=== PATIENT | male | born 1970 | race American Indian/Alaskan Native ===

== ENCOUNTER 2020-01-21 13:29 | Emergency (ER) | payer SELFPAY ==
[2020-01-21] MEDS ORDERED: LIDOCAINE VISCOUS 2% 15 ML ORAL LIQD PO ONE (13:38)
[2020-01-21] MEDS ORDERED: FAMOTIDINE 20 MG TAB PO ONE (13:38)
[2020-01-21] MEDS ORDERED: ALUM-MAG HYDROXIDE-SIMETHICONE 200-200-20MG/5ML ORAL LIQD 30 ML PO ONE (13:38)
--- NOTE | 2020-01-21 13:38 | Event Note ---
ED Screening Note ED Screening Note: used to smoke epigastric pain ate steak last pm woke up with same no hx ulcers/ does have some heart burn at times no etoh no n/v/d/c rx albuterol pmh asthma psh none This initial assessment/diagnostic orders/clinical plan/treatment(s) is/are subject to change based on patients health status, clinical progression and re- assessment by fellow clinical providers in the ED. Further treatment and workup at subsequent clinical providers discretion. Patient/guardian urged not to elope from the ED as their condition may be serious if not clinically assessed and managed. Initial orders include: labs gi cocktail xr
--- NOTE | 2020-01-21 14:22 | XRay Report ---
ABDOMINAL SERIES WITH CHEST X-RAY INDICATION / CLINICAL INFORMATION: epigastric pain. COMPARISON: None available. FINDINGS: TUBES / LINES: None. BOWEL GAS PATTERN: There is moderate to large fecal matter throughout the length of the colon. No fabien dence for obstruction or fluid levels. FREE AIR / EXTRALUMINAL GAS: None seen. Single view of the chest is within normal limits. IMPRESSION: Moderate constipation Signer Name: Alden Pritchard Jr, MD Signed: 01/21/2020 2:18 PM Workstation Name: [id number]
[2020-01-21 16:18] LABS: Hemoglobin 14.8 gm/dl (11.8-15.2); Mean Corpuscular HGB Conc 34 % (32-34); Mean Corpuscular Volume 100 fl (84-94); Platelet Count 165 K/mm3 (140-440); Red Blood Count 4.39 M/mm3 (3.65-5.03); Red Cell Distribution Width 12.1 % (13.2-15.2)
[2020-01-21 16:42] LABS: Alanine Aminotransferase 15 units/L (7-56); Albumin 4.4 g/dL (3.9-5); BUN/Creatinine Ratio 8; Blood Urea Nitrogen 10 mg/dL (9-20); Hemolysis Index 11
[2020-01-21 18:06] LABS: Bilirubin,Urine NEG (Negative); Blood,Urine NEG (Negative); Color,Urine Yellow (Yellow); Mucus,Urine FEW /HPF; Protein,Urine <15 mg/dL mg/dL (Negative)
[2020-01-21] MEDS ORDERED: ALUM-MAG HYDROXIDE-SIMETHICONE 200-200-20MG/5ML ORAL LIQD 30 ML ONE (19:33)
[2020-01-21] MEDS ORDERED: LIDOCAINE VISCOUS 2% 15 ML ORAL LIQD ONE (19:33)
[2020-01-21] MEDS ORDERED: FAMOTIDINE 20 MG TAB ONE (19:33)
[2020-01-21] MEDS ORDERED: FAMOTIDINE 20 MG/2 ML INJ IV ONE ×2 (19:56)
[2020-01-21] MEDS ORDERED: ONDANSETRON 4 MG/2 ML INJ IV ONE (19:56)
[2020-01-21] MEDS ORDERED: ONDANSETRON 4 MG/2 ML INJ ONE (19:56)
--- NOTE | 2020-01-21 20:19 | Emergency Department Report ---
ED Abdominal Pain HPI - General Chief Complaint: Abdominal Pain Stated Complaint: STOMACH PAIN Time Seen by Provider: 01/21/20 13:36 Source: patient Mode of arrival: Ambulatory Limitations: No Limitations - History of Present Illness Initial Comments: Patient is a 49-year-old male who presents emergency room complaints of epigastric abdominal pain that began last night. He describes the pain as a sharp stabbing pain and states occasionally feels like a burning sensation. He states he had similar symptoms a year ago but is not sure what he had at that time. He has associated nausea. He denies any vomiting, diarrhea, fever, blood or pus in the stool, melena. He states he had a normal bowel movement yesterday. He denies any dysuria, penile discharge, pain or swelling in the testicles, urinary frequency, urinary urgency. He has a past medical history of asthma. No allergies to medications. He states he has not been sexually active in 3 months. He denies any alcohol use. He is a smoker. Denies any drug use. Severity scale (0 -10): 9 - Related Data Home Medications Medication Instructions Recorded Confirmed Last Taken Albuterol Mdi (or & Nicu Only) 2 puff IH Q4HR 11/21/15 11/21/15 11/21/15 [Proair] Previous Rx's Medication Instructions Recorded Last Taken Type traMADoL [Ultram 50 MG tab] 50 mg PO Q6HR PRN #10 tablet 11/22/15 Unknown Rx Ciprofloxacin HCl [Ciprofloxacin 500 mg PO BID 7 Days #14 tab 01/21/20 Unknown Rx TAB] Famotidine [Pepcid] 40 mg PO QHS #30 tablet 01/21/20 Unknown Rx Polyethylene Glycol 3350 [Miralax] 7 gm PO DAILY PRN #1 powder 01/21/20 Unknown Rx Promethazine [Phenergan] 25 mg PO Q8HR PRN #10 tab 01/21/20 Unknown Rx Sucralfate [Carafate] 1 gm PO ACHS 7 Days #21 tablet 01/21/20 Unknown Rx Allergies Allergy/AdvReac Type Severity Reaction Status Date / Time No Known Allergies Allergy Verified 01/21/20 14:26 ED Review of Systems ROS: Stated complaint: STOMACH PAIN Other details as noted in HPI Comment: All other systems reviewed and negative ED Past Medical Hx - Past Medical History Previous Medical History?: Yes Hx Asthma: Yes - Surgical History Past Surgical History?: No - Social History Smoking Status: Never Smoker Substance Use Type: None - Medications Home Medications: Home Medications Medication Instructions Recorded Confirmed Last Taken Type Albuterol Mdi (or & Nicu Only) 2 puff IH Q4HR 11/21/15 11/21/15 11/21/15 History [Proair] traMADoL [Ultram 50 MG tab] 50 mg PO Q6HR PRN #10 tablet 11/22/15 Unknown Rx Ciprofloxacin HCl [Ciprofloxacin 500 mg PO BID 7 Days #14 tab 01/21/20 Unknown Rx TAB] Famotidine [Pepcid] 40 mg PO QHS #30 tablet 01/21/20 Unknown Rx Polyethylene Glycol 3350 [Miralax] 7 gm PO DAILY PRN #1 powder 01/21/20 Unknown Rx Promethazine [Phenergan] 25 mg PO Q8HR PRN #10 tab 01/21/20 Unknown Rx Sucralfate [Carafate] 1 gm PO ACHS 7 Days #21 tablet 01/21/20 Unknown Rx ED Physical Exam - General Limitations: No Limitations General appearance: alert, in no apparent distress - Head Head exam: Present: atraumatic, normocephalic - Eye Eye exam: Present: normal appearance - ENT ENT exam: Present: mucous membranes moist - Respiratory Respiratory exam: Present: normal lung sounds bilaterally. Absent: respiratory distress, wheezes, rales, rhonchi, stridor, chest wall tenderness, accessory muscle use, decreased breath sounds, prolonged expiratory - Cardiovascular Cardiovascular Exam: Present: regular rate, normal rhythm, normal heart sounds. Absent: systolic murmur, diastolic murmur, rubs, gallop - GI/Abdominal GI/Abdominal exam: Present: soft, tenderness (epigastric), normal bowel sounds. Absent: distended, guarding, rebound, rigid - Neurological Exam Neurological exam: Present: alert, oriented X3 - Psychiatric Psychiatric exam: Present: normal affect, normal mood - Skin Skin exam: Present: warm, dry, intact ED Course Vital Signs 01/21/20 01/21/20 01/21/20 14:26 22:55 22:56 Temperature 98.2 F 98.4 F 98.4 F Pulse Rate 80 70 70 Respiratory 16 16 16 Rate Blood Pressure 151/98 116/82 116/82 [Right] O2 Sat by Pulse 98 96 Oximetry ED Medical Decision Making - Lab Data Result diagrams: 01/21/20 15:59 01/21/20 15:59 Lab Results 01/21/20 01/21/20 01/21/20 Range/Units 15:59 15:59 19:41 WBC 6.4 (4.5-11.0) K/mm3 RBC 4.39 (3.65-5.03) M/mm3 Hgb 14.8 (11.8-15.2) gm/dl Hct 44.0 (35.5-45.6) % MCV 100 H (84-94) fl MCH 34 H (28-32) pg MCHC 34 (32-34) % RDW 12.1 L (13.2-15.2) % Plt Count 165 (140-440) K/mm3 Sodium 143 (137-145) mmol/L Potassium 4.5 (3.6-5.0) mmol/L Chloride 105.2 (98-107) mmol/L Carbon Dioxide 26 (22-30) mmol/L Anion Gap 16 mmol/L BUN 10 (9-20) mg/dL Creatinine 1.2 (0.8-1.3) mg/dL Estimated GFR > 60 ml/min BUN/Creatinine Ratio 8 % Glucose 118 H (75-100) mg/dL Calcium 10.0 (8.4-10.2) mg/dL Total Bilirubin 1.40 H (0.1-1.2) mg/dL AST 26 (5-40) units/L ALT 15 (7-56) units/L Alkaline Phosphatase 69 (35-129) units/L Troponin T < 0.010 (0.00-0.029) ng/mL Total Protein 7.1 (6.3-8.2) g/dL Albumin 4.4 (3.9-5) g/dL Albumin/Globulin Ratio 1.6 % Lipase 16 (13-60) units/L Urine Color (Yellow) Urine Turbidity (Clear) Urine pH (5.0-7.0) Ur Specific Thorp (1.003-1.030) Urine Protein (Negative) mg/dL Urine Glucose (UA) (Negative) mg/dL Urine Ketones (Negative) mg/dL Urine Blood (Negative) Urine Nitrite (Negative) Urine Bilirubin (Negative) Urine Urobilinogen (<2.0) mg/dL Ur Leukocyte Esterase (Negative) Urine WBC (Auto) (0.0-6.0) /HPF Urine RBC (Auto) (0.0-6.0) /HPF U Epithel Cells (Auto) (0-13.0) /HPF Urine Mucus /HPF 01/21/20 Range/Units Unknown WBC (4.5-11.0) K/mm3 RBC (3.65-5.03) M/mm3 Hgb (11.8-15.2) gm/dl Hct (35.5-45.6) % MCV (84-94) fl MCH (28-32) pg MCHC (32-34) % RDW (13.2-15.2) % Plt Count (140-440) K/mm3 Sodium (137-145) mmol/L Potassium (3.6-5.0) mmol/L Chloride (98-107) mmol/L Carbon Dioxide (22-30) mmol/L Anion Gap mmol/L BUN (9-20) mg/dL Creatinine (0.8-1.3) mg/dL Estimated GFR ml/min BUN/Creatinine Ratio % Glucose (75-100) mg/dL Calcium (8.4-10.2) mg/dL Total Bilirubin (0.1-1.2) mg/dL AST (5-40) units/L ALT (7-56) units/L Alkaline Phosphatase (35-129) units/L Troponin T (0.00-0.029) ng/mL Total Protein (6.3-8.2) g/dL Albumin (3.9-5) g/dL Albumin/Globulin Ratio % Lipase (13-60) units/L Urine Color Yellow (Yellow) Urine Turbidity Clear (Clear) Urine pH 6.0 (5.0-7.0) Ur Specific Thorp 1.018 (1.003-1.030) Urine Protein <15 mg/dl (Negative) mg/dL Urine Glucose (UA) Neg (Negative) mg/dL Urine Ketones Tr (Negative) mg/dL Urine Blood Neg (Negative) Urine Nitrite Neg (Negative) Urine Bilirubin Neg (Negative) Urine Urobilinogen 4.0 (<2.0) mg/dL Ur Leukocyte Esterase Tr (Negative) Urine WBC (Auto) 9.0 H (0.0-6.0) /HPF Urine RBC (Auto) 2.0 (0.0-6.0) /HPF U Epithel Cells (Auto) 1.0 (0-13.0) /HPF Urine Mucus Few /HPF Vital Signs 01/21/20 01/21/20 01/21/20 14:26 22:55 22:56 Temperature 98.2 F 98.4 F 98.4 F Pulse Rate 80 70 70 Respiratory 16 16 16 Rate Blood Pressure 151/98 116/82 116/82 [Right] O2 Sat by Pulse 98 96 Oximetry - EKG Data EKG shows normal: sinus rhythm, intervals, QRS complexes - EKG Data 01/21/20 21:45 LAD normal early repolarization no STEMI - Radiology Data Radiology results: report reviewed cc: MADDY ALVES Fluoro Time In Minutes: ABDOMINAL SERIES WITH CHEST X-RAY INDICATION / CLINICAL INFORMATION: epigastric pain. COMPARISON: None available. FINDINGS: TUBES / LINES: None. BOWEL GAS PATTERN: There is moderate to large fecal matter throughout the length of the colon. No evidence for obstruction or fluid levels. FREE AIR / EXTRALUMINAL GAS: None seen. Single view of the chest is within normal limits. IMPRESSION: Moderate constipation Signer Name: Alden Pritchard Jr, MD Signed: 01/21/2020 2:18 PM Workstation Name: [id number] Transcribed By: TTR Dictated By: ALDEN PRITCHARD JR, MD Electronically Authenticated By: ALDEN PRITCHARD JR, MD Signed Date/Time: 01/21/201417 DD/ 16 TD/TT: cc: ROSMERY STONE CT ABDOMEN AND PELVIS WITH CONTRAST INDICATION / CLINICAL INFORMATION: epigastric abd pain. TECHNIQUE: Axial CT images were obtained through the abdomen and pelvis after IV contrast. All CT scans at this location are performed using CT dose reduction for ALARA by means of automated exposure control. COMPARISON: None available. FINDINGS: LOWER CHEST: No significant abnormality. LIVER: No significant abnormality. GALLBLADDER: No significant abnormality. BILE DUCTS: No significant abnormality. PANCREAS: No significant abnormality. SPLEEN: No significant abnormality. ADRENALS: No significant abnormality. RIGHT KIDNEY / URETER: The right kidney is enlarged with innumerable cystic lesions, the largest measuring 5.5 cm in cross sectional diameter. None of these lesions appear to have a soft tissue component. The posterior lateral lesion at the interpolar region of the right kidney demonstrates a thin septation (series 2 image 55). LEFT KIDNEY / URETER: The left kidney is enlarged with a numerable cystic lesions, the largest measuring 7.1 x 5.3 cm in demonstrating multiple thin internal septations. No evidence of soft tissue component any of these lesions. STOMACH / SMALL BOWEL: No significant abnormality. COLON: No significant abnormality. APPENDIX: No significant abnormality. PERITONEUM: No free fluid. No free air. No fluid collection. LYMPH NODES: No significant adenopathy. AORTA / ARTERIES: No significant abnormality. IVC / VEINS: No significant abnormality. URINARY BLADDER: No significant abnormality. REPRODUCTIVE ORGANS: No significant abnormality. ADDITIONAL FINDINGS: None. SKELETAL SYSTEM: Mild sclerosis noted of the bilateral femoral heads. There is an ill-defined solitary sclerotic lesion noted of the inferior pubic ramus on the right measuring 6 mm. IMPRESSION: 1. No significant acute abnormality. 2. Bilateral cystic renal disease. Most are simple cysts, however A few of the lesions demonstrate thin internal septations and would be classified as Bosniak 2. Please see above for full details. Signer Name: Tio Miguel MD Signed: 01/21/2020 8:45 PM Workstation Name: [id number] Transcribed By: Dictated By: TIO MIGUEL Electronically Authenticated By: TIO MIGUEL Signed Date/Time: 01/21/202044 DD/ 33 TD/TT: - Medical Decision Making Patient is a 49-year-old male who presents emergency room complaints of epigastric abdominal pain that began last night. He describes the pain as a sharp stabbing pain and states occasionally feels like a burning sensation. He states he had similar symptoms a year ago but is not sure what he had at that time. He has associated nausea. He denies any vomiting, diarrhea, fever, blood or pus in the stool, melena. He states he had a normal bowel movement yesterday. He denies any dysuria, penile discharge, pain or swelling in the testicles, urinary frequency, urinary urgency. He has a past medical history of asthma. No allergies to medications. He states he has not been sexually active in 3 months. He denies any alcohol use. He is a smoker. Denies any drug use. Vitals are stable. On exam patient has epigastric abdominal tenderness palpation, no guarding, no rebound, no rigidity, no peritoneal signs, normal bowel sounds. Labs are stable. Troponin is negative. UA shows 9 white blood cells and trace leukocyte esterase, patient prophylactically treated for G/C and will also be treated for UTI. EKG with normal sinus rhythm, left axis deviation, normal early repolarization pattern, no STEMI. abdominal XR with chest: Moderate constipation. CT abd pelvis with IV contrast: 1. No significant acute abnormality. 2. Bilateral cystic renal disease. Most are simple cysts, however A few of the lesions demonstrate thin internal septations and would be classified as Bosniak 2. Please see above for full details. Patient given medications and symptoms completely improved and he was feeling much better and ready to go home. Discussed all results with patient and patient given his CT report. Patient given prescription for Carafate, Pepcid, Cipro, Phenergan, MiraLAX. Advised patient Please take medication as prescribed. Increase your water intake. Please follow-up with a primary care doctor. Please follow-up with a GI doctor regarding your abdominal pain. Please follow-up with the petal shaper hand regarding the renal cysts on your CT. please take your CT report with you. Please follow-up with the health department or clinic for a full STD panel. Please have any partner tested and treated as well. Return to emergency room for any new or worsening symptoms. - Differential Diagnosis PUD, GERD, gas pain, ACS, obstruction, mass, pancreatitis, gastritis Critical care attestation.: If time is entered above; I have spent that time in minutes in the direct care of this critically ill patient, excluding procedure time. ED Disposition Clinical Impression: Epigastric abdominal pain, Nausea, Bilateral renal cysts UTI (urinary tract infection) Qualifiers: Urinary tract infection type: site unspecified Hematuria presence: without hematuria Qualified Code(s): N39.0 - Urinary tract infection, site not specified Constipation Qualifiers: Constipation type: unspecified constipation type Qualified Code(s): K59.00 - Co nstipation, unspecified Disposition: - TO HOME OR SELFCARE Is pt being admited?: No Does the pt Need Aspirin: No Condition: Stable Instructions: Peptic Ulcer (ED), Constipation (ED), Urinary Tract Infection in Men (ED), High Fiber Diet (ED), Diet for Ulcers and Gastritis (ED), Gastroesophageal Reflux Disease (ED) Additional Instructions: Please take medication as prescribed. Increase your water intake. Please follow-up with a primary care doctor. Please follow-up with a GI doctor regarding your abdominal pain. Please follow-up with the petal shaper hand regarding the renal cysts on your CT. please take your CT report with you. Please follow- up with the health department or clinic for a full STD panel. Please have any partner tested and treated as well. Return to emergency room for any new or worsening symptoms. Prescriptions: Famotidine [Pepcid] 40 mg PO QHS #30 tablet Sucralfate [Carafate] 1 gm PO ACHS 7 Days #21 tablet Ciprofloxacin HCl [Ciprofloxacin TAB] 500 mg PO BID 7 Days #14 tab Polyethylene Glycol 3350 [Miralax] 7 gm PO DAILY PRN #1 powder PRN Reason: Constipation Promethazine [Phenergan] 25 mg PO Q8HR PRN #10 tab PRN Reason: Nausea And Vomiting Referrals: PRIMARY MD JIMENA [Primary Care Provider] - 2-3 Days [facility] [Provider Group] - 2-3 Days BEATRICE CUNNINGHAM MD [Staff Physician] - 2-3 Days [facility] [Outside] - 2-3 Days Forms: Work/School Release Form(ED) Time of Disposition: 21:33 Print Language: IRISH
--- NOTE | 2020-01-21 20:50 | Cat Scan Report ---
CT ABDOMEN AND PELVIS WITH CONTRAST INDICATION / CLINICAL INFORMATION: epigastric abd pain. TECHNIQUE: Axial CT images were obtained through the abdomen and pelvis after IV contrast. All CT scans at this location are performed using CT dose reduction for ALARA by means of automated exposure control. COMPARISON: None available. FINDINGS: LOWER CHEST: No significant abnormality. LIVER: No significant abnormality. GALLBLADDER: No significant abnormality. BILE DUCTS: No significant abnormality. PANCREAS: No significant abnormality. SPLEEN: No significant abnormality. ADRENALS: No significant abnormality. RIGHT KIDNEY / URETER: The right kidney is enlarged with innumerable cystic lesions, the largest jhoan uring 5.5 cm in cross sectional diameter. None of these lesions appear to have a soft tissue componen t. The posterior lateral lesion at the interpolar region of the right kidney demonstrates a thin sept ation (series 2 image 55). LEFT KIDNEY / URETER: The left kidney is enlarged with a numerable cystic lesions, the largest measur ing 7.1 x 5.3 cm in demonstrating multiple thin internal septations. No evidence of soft tissue compo nent any of these lesions. STOMACH / SMALL BOWEL: No significant abnormality. COLON: No significant abnormality. APPENDIX: No significant abnormality. PERITONEUM: No free fluid. No free air. No fluid collection. LYMPH NODES: No significant adenopathy. AORTA / ARTERIES: No significant abnormality. IVC / VEINS: No significant abnormality. URINARY BLADDER: No significant abnormality. REPRODUCTIVE ORGANS: No significant abnormality. ADDITIONAL FINDINGS: None. SKELETAL SYSTEM: Mild sclerosis noted of the bilateral femoral heads. There is an ill-defined solitar y sclerotic lesion noted of the inferior pubic ramus on the right measuring 6 mm. IMPRESSION: 1. No significant acute abnormality. 2. Bilateral cystic renal disease. Most are simple cysts, however A few of the lesions demonstrate th in internal septations and would be classified as Bosniak 2. Please see above for full details. Signer Name: Tio Gore MD Signed: 01/21/2020 8:45 PM Workstation Name: [id number]
[2020-01-21] MEDS ORDERED: AZITHROMYCIN 250 MG TAB PO ONE (21:20)
[2020-01-21 22:56] VITALS: BP 116/82
== END 2020-01-21 22:57 | disposition home or self-care (01) ==
LOC: ED 13:29
DX: N28.1 Cyst of kidney, acquired (principal); K59.00 Constipation, unspecified; N39.0 Urinary tract infection, site not specified; J45.909 Unspecified asthma, uncomplicated; Z79.899 Other long term (current) drug therapy
CPT/HCPCS: 36415; 74022; 74177; 80053; 81001; 83690; 84484; 85027; 87086; 93005; 96365; 96375; 99285; J0696; J2405; Q9967

== ENCOUNTER 2020-08-05 11:29 | Emergency (ER) | payer SELFPAY ==
--- NOTE | 2020-08-05 11:39 | Event Note ---
ED Screening Note ED Screening Note: 50-year-old -[place] Citizen male presents emerged department complaining of a reemergence of abdominal pain to the epigastric region over the last 2 weeks has been progressively worsening and reports not been able to tolerate meals over the last few days but has had no bowel movement over the last 4 days. Ports normal symptoms no hematochezia reports having this same same episode March 2020 which was treated with Cipro and sucralfate This initial assessment/diagnostic orders/clinical plan/treatment(s) is/are subject to change based on patients health status, clinical progression and re- assessment by fellow clinical providers in the ED. Further treatment and workup at subsequent clinical providers discretion. Patient/guardian urged not to elope from the ED as their condition may be serious if not clinically assessed and managed. Initial orders include: Plan obtain labs, urine and evaluate constipation with an acute abdominal series
[2020-08-05 11:58] LABS: Basophils % (Auto) 0.6 % (0.0-1.8); Eosinophils # (Auto) 0.2 K/mm3 (0.0-0.4); Hematocrit 43.3 % (35.5-45.6); Lymphocytes # (Auto) 2.1 K/mm3 (1.2-5.4); Mean Corpuscular HGB Conc 35 % (32-34); Mean Corpuscular Volume 98 fl (84-94); Monocytes # (Auto) 0.4 K/mm3 (0.0-0.8); Monocytes % (Auto) 7.1 % (0.0-7.3); Platelet Count 150 K/mm3 (140-440)
[2020-08-05 12:18] LABS: Alanine Aminotransferase 8 units/L (7-56); Albumin 4.1 g/dL (3.9-5); BUN/Creatinine Ratio 10; Blood Urea Nitrogen 12 mg/dL (9-20); Calcium 9.3 mg/dL (8.4-10.2); Hemolysis Index 6
--- NOTE | 2020-08-05 13:02 | XRay Report ---
ACUTE ABDOMEN SERIES INDICATION / CLINICAL INFORMATION: constipation abd pain. COMPARISON: 01/21/2020 FINDINGS: Normal bowel gas pattern. No evidence of obstruction or pneumoperitoneum. A small amount of fecal mat erial is seen in the colon. The accompanying chest x-ray shows no acute disease. Signer Name: Chon Cole MD FACR Signed: 08/05/2020 12:58 PM Workstation Name: [id number]
[2020-08-05 13:44] LABS: Bilirubin,Direct 0.3 mg/dL (0-0.2)
[2020-08-05 17:14] LABS: Bilirubin,Urine NEG (Negative); Blood,Urine NEG (Negative); Color,Urine Amber (Yellow); RBC,Urine < 1.0 /HPF (0.0-6.0)
[2020-08-05] MEDS ORDERED: FAMOTIDINE 20 MG/2 ML INJ IV ONE (17:27)
[2020-08-05] MEDS ORDERED: fentaNYL 100 MCG/2 ML INJ IV ONE (17:27)
[2020-08-05] MEDS ORDERED: ALUM-MAG HYDROXIDE-SIMETHICONE 200-200-20MG/5ML ORAL LIQD 30 ML PO ONE (17:27)
[2020-08-05] MEDS ORDERED: LIDOCAINE VISCOUS 2% 15 ML ORAL LIQD PO ONE (17:27)
[2020-08-05] MEDS ORDERED: ONDANSETRON 4 MG/2 ML INJ IV ONE (17:27)
--- NOTE | 2020-08-05 17:31 | Emergency Department Report ---
HPI - General Chief Complaint: Abdominal Pain Time Seen by Provider: 08/05/20 16:42 - HPI HPI: Room 42 The patient is a 50-year-old male present with a chief complaint of abdominal pain. The patient states for 1 week he has had intermittent burning epigastric pain. Patient denies nausea vomiting but states he has had early satiety. Patient states he has not had a bowel movement in 4 days when he normally has 1 every other day. Patient denies history of fever. Patient currently gives his pain a score of 9/10. The patient states he had a similar episode of this pain 4 months ago and he was prescribed ciprofloxacin and sulcal fate which helped. Patient states he is uncertain if he received an EGD and he is uncertain of what his final diagnosis was. ED Past Medical Hx - Past Medical History Hx Asthma: Yes - Surgical History Past Surgical History?: No - Family History Family history: no significant - Social History Smoking Status: Current Some Day Smoker Substance Use Type: None (Denies illicit drug use), Alcohol - Medications Home Medications: Home Medications Medication Instructions Recorded Confirmed Last Taken Type Albuterol Mdi (or & Nicu Only) 2 puff IH Q4HR 11/21/15 11/21/15 11/21/15 History [Proair] traMADoL [Ultram 50 MG tab] 50 mg PO Q6HR PRN #10 tablet 11/22/15 Unknown Rx Ciprofloxacin HCl [Ciprofloxacin 500 mg PO BID 7 Days #14 tab 01/21/20 Unknown Rx TAB] Famotidine [Pepcid] 40 mg PO QHS #30 tablet 01/21/20 Unknown Rx Polyethylene Glycol 3350 [Miralax] 7 gm PO DAILY PRN #1 powder 01/21/20 Unknown Rx Promethazine [Phenergan] 25 mg PO Q8HR PRN #10 tab 01/21/20 Unknown Rx Sucralfate [Carafate] 1 gm PO ACHS 7 Days #21 tablet 01/21/20 Unknown Rx Docusate Sodium [Colace] 100 mg PO BID PRN #30 capsule 08/05/20 Unknown Rx Famotidine [Pepcid] 20 mg PO BID #30 tablet 08/05/20 Unknown Rx HYDROcodone/APAP 5-325 [[place] 1 - 2 each PO Q6HR PRN #10 tablet 08/05/20 Unknown Rx 5/325] Lactulose [Cephulac] 20 gm PO QDAY #90 ml 08/05/20 Unknown Rx ED Review of Systems ROS: Stated complaint: STOMACH/HIP PAIN Other details as noted in HPI Constitutional: denies: fever Eyes: denies: eye pain ENT: denies: throat pain Respiratory: no symptoms reported Cardiovascular: denies: chest pain Endocrine: no symptoms reported Gastrointestinal: abdominal pain, constipation. denies: nausea, vomiting Genitourinary: denies: dysuria Musculoskeletal: denies: back pain Neurological: denies: headache Physical Exam - Physical Exam Vital Signs: Vital Signs 08/05/20 11:34 Temperature 97.9 F Pulse Rate 79 Respiratory 20 Rate Blood Pressure 142/94 O2 Sat by Pulse 94 Oximetry Physical Exam: GENERAL: The patient is well-developed well-nourished male lying on stretcher not appearing to be in acute distress. [] HEENT: Normocephalic. Atraumatic. Extraocular motions are intact. Patient has moist mucous membranes. NECK: Supple. Trachea midline CHEST/LUNGS: Clear to auscultation. There is no respiratory distress noted. HEART/CARDIOVASCULAR: Regular. There is no tachycardia. There is no gallop rub or murmur. ABDOMEN: Abdomen is soft, with diffuse tenderness to palpation but greatest in the epigastric region. No rebound or guarding. Patient has normal bowel sounds. There is no abdominal distention. SKIN: There is no rash. There is no edema. There is no diaphoresis. NEURO: The patient is awake, alert, and oriented. The patient is cooperative. The patient has no focal neurologic deficits. The patient has normal speech MUSCULOSKELETAL: There is no evidence of acute injury. ED Course Vital Signs 08/05/20 11:34 Temperature 97.9 F Pulse Rate 79 Respiratory 20 Rate Blood Pressure 142/94 O2 Sat by Pulse 94 Oximetry ED Medical Decision Making - Lab Data Result diagrams: 08/05/20 11:49 08/05/20 11:49 Laboratory Tests 08/05/20 08/05/20 08/05/20 11:45 11:49 11:49 WBC 5.5 RBC 4.40 Hgb 15.0 Hct 43.3 MCV 98 H MCH 34 H MCHC 35 H RDW 12.0 L Plt Count 150 Lymph % (Auto) 38.0 H [place] % (Auto) 7.1 Eos % (Auto) 4.0 Baso % (Auto) 0.6 Lymph # (Auto) 2.1 [place] # (Auto) 0.4 Eos # (Auto) 0.2 Baso # (Auto) 0.0 Seg Neutrophils % 50.3 Seg Neutrophils # 2.8 Sodium 137 Potassium 4.0 Chloride 102.8 Carbon Dioxide 28 Anion Gap 10 BUN 12 Creatinine 1.2 Estimated GFR > 60 BUN/Creatinine Ratio 10 Glucose 92 Calcium 9.3 Total Bilirubin 1.40 H Direct Bilirubin 0.3 H Indirect Bilirubin 1.1 AST 16 ALT 8 Alkaline Phosphatase 71 Troponin T < 0.010 Total Protein 7.3 Albumin 4.1 Albumin/Globulin Ratio 1.3 Lipase 19 Urine Color Urine Turbidity Urine pH Ur Specific [place] Urine Protein Urine Glucose (UA) Urine Ketones Urine Blood Urine Nitrite Urine Bilirubin Urine Urobilinogen Ur Leukocyte Esterase Urine WBC (Auto) Urine RBC (Auto) U Epithel Cells (Auto) 08/05/20 15:25 WBC RBC Hgb Hct MCV MCH MCHC RDW Plt Count Lymph % (Auto) [place] % (Auto) Eos % (Auto) Baso % (Auto) Lymph # (Auto) [place] # (Auto) Eos # (Auto) Baso # (Auto) Seg Neutrophils % Seg Neutrophils # Sodium Potassium Chloride Carbon Dioxide Anion Gap BUN Creatinine Estimated GFR BUN/Creatinine Ratio Glucose Calcium Total Bilirubin Direct Bilirubin Indirect Bilirubin AST ALT Alkaline Phosphatase Troponin T Total Protein Albumin Albumin/Globulin Ratio Lipase Urine Color Jamia Urine Turbidity Clear Urine pH 5.0 Ur Specific [place] 1.034 H Urine Protein 100 mg/dl Urine Glucose (UA) Neg Urine Ketones Neg Urine Blood Neg Urine Nitrite Neg Urine Bilirubin Neg Urine Urobilinogen 4.0 Ur Leukocyte Esterase Tr Urine WBC (Auto) < 1.0 Urine RBC (Auto) < 1.0 U Epithel Cells (Auto) < 1.0 - EKG Data -: EKG Interpreted by Wi EKG shows normal: sinus rhythm Rate: normal - EKG Data When compared to previous EKG there are: previous EKG unavailable Interpretation: other (No ischemic changes seen) - Radiology Data Radiology results: report reviewed (CT abdomen pelvis), image reviewed (CT abdomen pelvis) [facility] [address] [place] [address] Cat Scan Report Signed Patient: ALEK DARDEN MR#: [id number] 1 : 1970 Acct:[id number] Age/Sex: 50 / M ADM Date: 08/05/20 Loc: ED Attending Dr: Ordering Physician: OLIVIA ERICKSON MD Date of Service: 08/05/20 Procedure(s): CT abdomen pelvis w con Accession Number(s): [id number] cc: OLIVIA ERICKSON MD CT ABDOMEN AND PELVIS WITH CONTRAST INDICATION / CLINICAL INFORMATION: Epigastric pain, constipation. TECHNIQUE: Axial CT images were obtained through the abdomen and pelvis after 100 cc Omnipaque [address] scans at this location are performed using CT dose reduction for ALARA by means of automated exposure control. COMPARISON: Acute abdominal series performed earlier today. CT abdomen and pelvis with contrast from 01/21/2020. FINDINGS: LOWER CHEST: No significant abnormality. LIVER: No significant abnormality. GALLBLADDER: No significant abnormality. BILE DUCTS: No significant abnormality. PANCREAS: No significant abnormality. SPLEEN: No significant abnormality. ADRENALS: No significant abnormality. RIGHT KIDNEY / URETER: No acute abnormality. Unchanged polycystic kidney. LEFT KIDNEY / URETER: No acute abnormality. Unchanged polycystic kidney. STOMACH / SMALL BOWEL: No significant abnormality. COLON: Moderate amount of stool throughout the colon without other significant abnormalities. APPENDIX: No significant abnormality. PERITONEUM: No free fluid. No free air. No fluid collection. LYMPH NODES: No significant adenopathy. AORTA / ARTERIES: No significant abnormality. IVC / VEINS: No significant abnormality. URINARY BLADDER: No significant abnormality. REPRODUCTIVE ORGANS: No significant abnormality. ADDITIONAL FINDINGS: None. SKELETAL SYSTEM: No significant abnormality. IMPRESSION: 1. No acute abnormality. 2. Moderate colonic stool burden is consistent with the provided history of constipation. 3. No other significant interval changes. Signer Name: Jamari Go MD Signed: 08/05/2020 6:07 PM Workstation Name: [id number] Transcribed By: KIM Dictated By: Jamari Go MD Electronically Authenticated By: Jamari Go MD Signed Date/Time: 08/05/201806 DD/ 03 TD/TT: - Differential Diagnosis Peptic ulcer disease, gastritis, partial small bowel obstruction, ACS Critical care attestation.: If time is entered above; I have spent that time in minutes in the direct care of this critically ill patient, excluding procedure time. ED Disposition Clinical Impression: Acute abdominal pain Disposition: DC-01 TO HOME OR SELFCARE Is pt being admited?: No Does the pt Need Aspirin: No Condition: Stable Instructions: Abdominal Pain, Adult, Peptic Ulcer Additional Instructions: Return to the emergency department should you develop worsening symptoms, inability to tolerate food or liquids, high fever or any other concerns Prescriptions: Lactulose [Cephulac] 20 gm PO QDAY #90 ml Docusate Sodium [Colace] 100 mg PO BID PRN #30 capsule PRN Reason: Constipation HYDROcodone/APAP 5-325 [[place] 5/325] 1 - 2 each PO Q6HR PRN #10 tablet PRN Reason: Pain Famotidine [Pepcid] 20 mg PO BID #30 tablet Referrals: STPEHANY SELBY MD [Staff Physician] - 2-3 Days (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 Please follow-up with him for further evaluation) Time of Disposition: 18:50
[2020-08-05 17:47] LABS: WBC,Urine < 1.0 /HPF (0.0-6.0)
--- NOTE | 2020-08-05 18:12 | Cat Scan Report ---
CT ABDOMEN AND PELVIS WITH CONTRAST INDICATION / CLINICAL INFORMATION: Epigastric pain, constipation. TECHNIQUE: Axial CT images were obtained through the abdomen and pelvis after 100 cc Omnipaque [address] scans at this location are performed using CT dose reduction for ALARA by means of automated exposure control. COMPARISON: Acute abdominal series performed earlier today. CT abdomen and pelvis with contrast from 01/21/2020. FINDINGS: LOWER CHEST: No significant abnormality. LIVER: No significant abnormality. GALLBLADDER: No significant abnormality. BILE DUCTS: No significant abnormality. PANCREAS: No significant abnormality. SPLEEN: No significant abnormality. ADRENALS: No significant abnormality. RIGHT KIDNEY / URETER: No acute abnormality. Unchanged polycystic kidney. LEFT KIDNEY / URETER: No acute abnormality. Unchanged polycystic kidney. STOMACH / SMALL BOWEL: No significant abnormality. COLON: Moderate amount of stool throughout the colon without other significant abnormalities. APPENDIX: No significant abnormality. PERITONEUM: No free fluid. No free air. No fluid collection. LYMPH NODES: No significant adenopathy. AORTA / ARTERIES: No significant abnormality. IVC / VEINS: No significant abnormality. URINARY BLADDER: No significant abnormality. REPRODUCTIVE ORGANS: No significant abnormality. ADDITIONAL FINDINGS: None. SKELETAL SYSTEM: No significant abnormality. IMPRESSION: 1. No acute abnormality. 2. Moderate colonic stool burden is consistent with the provided history of constipation. 3. No other significant interval changes. Signer Name: Jamari Go MD Signed: 08/05/2020 6:07 PM Workstation Name: [id number]
[2020-08-05 18:27] VITALS: BP 122/81
== END 2020-08-05 19:06 | disposition home or self-care (01) ==
LOC: ED 11:29
DX: R10.13 Epigastric pain (principal); F17.200 Nicotine dependence, unspecified, uncomplicated; J45.909 Unspecified asthma, uncomplicated; Z79.899 Other long term (current) drug therapy
CPT/HCPCS: 36415; 74022; 74177; 80048; 80076; 81001; 83690; 84484; 85025; 93005; 96374; 96375; 99284; J2405; J3010; Q9967

== ENCOUNTER 2021-03-08 17:01 | Emergency (ER) | payer SELFPAY ==
[2021-03-08 17:22] VITALS: BP 131/85
[2021-03-08] MEDS ORDERED: IBUPROFEN 800 MG TAB PO ONE (18:38)
--- NOTE | 2021-03-08 19:07 | XRay Report ---
LUMBAR SPINE 2 VIEWS INDICATION / CLINICAL INFORMATION: left back/hip pain COMPARISON: None available. FINDINGS: BONES / JOINT(S): No acute fracture or subluxation. No significant arthritis. SOFT TISSUES: No significant abnormality. ADDITIONAL FINDINGS: None. Signer Name: Amadou Dimas MD Signed: 03/08/2021 7:03 PM Workstation Name: [id number]
--- NOTE | 2021-03-08 19:09 | XRay Report ---
LEFT HIP 2 VIEWS INDICATION / CLINICAL INFORMATION: left back/hip pain COMPARISON: None available. FINDINGS: BONES / JOINT(S): No acute fracture or subluxation. 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 SOFT TISSUES: No significant abnormality. ADDITIONAL FINDINGS: None. Signer Name: Amadou Dimas MD Signed: 03/08/2021 7:04 PM Workstation Name: [id number]
--- NOTE | 2021-03-08 19:54 | Emergency Department Report ---
ED Back Pain/Injury HPI - General Chief Complaint: Extremity Injury, Lower Stated Complaint: LT SIDE HIP PAIN Time Seen by Provider: 03/08/21 18:23 Source: patient Limitations: No Limitations - History of Present Illness Initial Comments: This is a 50-year-old male nontoxic, well nourished in appearance, no acute signs of distress presents to the ED with c/o of acute on chronic lower back pain with radiation to left hip. Patient stated that he had a injury in 2017 but denies follow-up with a primary care doctor since then. Patient denies any imaging studies since the accident. Patient otherwise denies any complaints or symptoms. Patient denies any acute injuries or trauma. Denies any bladder or bowel instability. Patient denies any urinary symptoms. Denies any fever, chills, nausea, vomiting, headache, stiff neck, chest pain or shortness of breath. Patient denies any numbness or tingling. Denies any allergies. MD Complaint: back pain -: year(s) Similar Symptoms Previously: Yes Severity: mild Severity scale (0 -10): 8 Quality: aching Consistency: intermittent Improves With: immobilization, sitting upright Worsens With: movement, walking Associated Symptoms: denies other symptoms. denies: confusion, weakness, chest pain, numbness, difficulty walking, cough, difficulty urinating, diaphoresis, incontinence, fever/chills, constipation, headaches, abdominal pain, loss of appetite, malaise, nausea/vomiting, rash, seizure, shortness of breath, syncope - Related Data Home Medications Medication Instructions Recorded Confirmed Last Taken Albuterol Mdi (or & Nicu Only) 2 puff IH Q4HR 11/21/15 11/21/15 11/21/15 [Proair] Previous Rx's Medication Instructions Recorded Last Taken Type traMADoL [Ultram 50 MG tab] 50 mg PO Q6HR PRN #10 tablet 11/22/15 Unknown Rx Ciprofloxacin HCl [Ciprofloxacin 500 mg PO BID 7 Days #14 tab 01/21/20 Unknown Rx TAB] Famotidine [Pepcid] 40 mg PO QHS #30 tablet 01/21/20 Unknown Rx Polyethylene Glycol 3350 [Miralax] 7 gm PO DAILY PRN #1 powder 01/21/20 Unknown Rx Promethazine [Phenergan] 25 mg PO Q8HR PRN #10 tab 01/21/20 Unknown Rx Sucralfate [Carafate] 1 gm PO ACHS 7 Days #21 tablet 01/21/20 Unknown Rx Docusate Sodium [Colace] 100 mg PO BID PRN #30 capsule 08/05/20 Unknown Rx Famotidine [Pepcid] 20 mg PO BID #30 tablet 08/05/20 Unknown Rx HYDROcodone/APAP 5-325 [[place] 1 - 2 each PO Q6HR PRN #10 tablet 08/05/20 Unknown Rx 5/325] Lactulose [Cephulac] 20 gm PO QDAY #90 ml 08/05/20 Unknown Rx Cyclobenzaprine [Flexeril] 10 mg PO QHS PRN #10 tablet 03/08/21 Unknown Rx Naproxen 500 mg PO Q12H PRN #12 tablet 03/08/21 Unknown Rx Allergies Allergy/AdvReac Type Severity Reaction Status Date / Time No Known Allergies Allergy Verified 03/08/21 17:22 ED Review of Systems ROS: Stated complaint: LT SIDE HIP PAIN Other details as noted in HPI Comment: All other systems reviewed and negative Constitutional: denies: chills, fever Eyes: denies: eye pain, eye discharge, vision change ENT: denies: ear pain, throat pain Respiratory: denies: cough, shortness of breath, wheezing Cardiovascular: denies: chest pain, palpitations Endocrine: no symptoms reported Gastrointestinal: denies: abdominal pain, nausea, diarrhea Genitourinary: denies: urgency, dysuria Musculoskeletal: back pain. denies: joint swelling, arthralgia Skin: denies: rash, lesions Neurological: denies: headache, weakness, paresthesias Psychiatric: denies: anxiety, depression Hematological/Lymphatic: denies: easy bleeding, easy bruising ED Past Medical Hx - Past Medical History Hx Asthma: Yes - Social History Smoking Status: Current Some Day Smoker Substance Use Type: None (Denies illicit drug use), Alcohol - Medications Home Medications: Home Medications Medication Instructions Recorded Confirmed Last Taken Type Albuterol Mdi (or & Nicu Only) 2 puff IH Q4HR 11/21/15 11/21/15 11/21/15 History [Proair] traMADoL [Ultram 50 MG tab] 50 mg PO Q6HR PRN #10 tablet 11/22/15 Unknown Rx Ciprofloxacin HCl [Ciprofloxacin 500 mg PO BID 7 Days #14 tab 01/21/20 Unknown Rx TAB] Famotidine [Pepcid] 40 mg PO QHS #30 tablet 01/21/20 Unknown Rx Polyethylene Glycol 3350 [Miralax] 7 gm PO DAILY PRN #1 powder 01/21/20 Unknown Rx Promethazine [Phenergan] 25 mg PO Q8HR PRN #10 tab 01/21/20 Unknown Rx Sucralfate [Carafate] 1 gm PO ACHS 7 Days #21 tablet 01/21/20 Unknown Rx Docusate Sodium [Colace] 100 mg PO BID PRN #30 capsule 08/05/20 Unknown Rx Famotidine [Pepcid] 20 mg PO BID #30 tablet 08/05/20 Unknown Rx HYDROcodone/APAP 5-325 [[place] 1 - 2 each PO Q6HR PRN #10 tablet 08/05/20 Unknown Rx 5/325] Lactulose [Cephulac] 20 gm PO QDAY #90 ml 08/05/20 Unknown Rx Cyclobenzaprine [Flexeril] 10 mg PO QHS PRN #10 tablet 03/08/21 Unknown Rx Naproxen 500 mg PO Q12H PRN #12 tablet 03/08/21 Unknown Rx ED Physical Exam - General Limitations: No Limitations General appearance: alert, in no apparent distress - Head Head exam: Present: atraumatic, normocephalic - Eye Eye exam: Present: normal appearance - Neck Neck exam: Present: normal inspection, full ROM. Absent: lymphadenopathy - Respiratory Respiratory exam: Present: normal lung sounds bilaterally. Absent: respiratory distress, wheezes, rales, rhonchi, stridor, chest wall tenderness, accessory muscle use, decreased breath sounds, prolonged expiratory - Cardiovascular Cardiovascular Exam: Present: regular rate, normal rhythm, normal heart sounds. Absent: bradycardia, tachycardia, irregular rhythm, systolic murmur, diastolic murmur, rubs, gallop - GI/Abdominal GI/Abdominal exam: Present: soft, normal bowel sounds. Absent: distended, tende rness, guarding, rebound, rigid, diminished bowel sounds, mass, bruit, pulsatile mass - Extremities Exam Extremities exam: Present: normal inspection, full ROM, normal capillary refill. Absent: tenderness, pedal edema, joint swelling, calf tenderness - Back Exam Back exam: Present: normal inspection, full ROM, paraspinal tenderness (left lumbar paraspinal ). Absent: tenderness, CVA tenderness (R), CVA tenderness (L), muscle spasm, vertebral tenderness, rash noted - Expanded Back Exam Expanded Back exam: Absent: saddle anesthesia Back exam: Negative Straight Leg Raising: Left, Right 1 - pain here - Neurological Exam Neurological exam: Present: alert, oriented X3, normal gait - Psychiatric Psychiatric exam: Present: normal affect, normal mood - Skin Skin exam: Present: warm, dry, intact, normal color. Absent: rash ED Course Vital Signs 03/08/21 17:18 Temperature 98.9 F Pulse Rate 92 H Respiratory 16 Rate Blood Pressure 131/85 [Left] O2 Sat by Pulse 98 Oximetry - Reevaluation(s) Reevaluation #1: 03/08/21 19:53 Patient is speaking in full sentences with no signs of distress noted. ED Medical Decision Making - Radiology Data [facility] [address] [place] [address] XRay Report Signed Patient: ALEK DARDEN MR#: [id number] 1 : 1970 Acct:[id number] Age/Sex: 50 / M ADM Date: 03/08/21 Loc: ED Attending Dr: Ordering Physician: ALVARO SOLORZANO NP Date of Service: 03/08/21 Procedure(s): XR spine lumbosacral 2-3V Accession Number(s): [id number] cc: ALVARO SOLORZANO NP Fluoro Time In Minutes: LUMBAR SPINE 2 VIEWS INDICATION / CLINICAL INFORMATION: left back/hip pain COMPARISON: None available. FINDINGS: BONES / JOINT(S): No acute fracture or subluxation. No significant arthritis. SOFT TISSUES: No significant abnormality. ADDITIONAL FINDINGS: None. Signer Name: Amadou Dimas MD Signed: 03/08/2021 7:03 PM Workstation Name: [id number] Transcribed By: ES Dictated By: Amadou Dimas MD Electronically Authenticated By: Amadou Dimas MD Signed Date/Time: 03/08/21 1903 DD/ 01 TD/TT: [facility] [address] [place] [address] XRay Report Signed Patient: ALEK DARDEN MR#: [id number] 1 : 1970 Acct:[id number] Age/Sex: 50 / M ADM Date: 03/08/21 Loc: ED Attending Dr: Ordering Physician: ALVARO SOLORZANO NP Date of Service: 03/08/21 Procedure(s): XR hip 2-3V LT Accession Number(s): [id number] cc: ALVARO SOLORZANO NP Fluoro Time In Minutes: LEFT HIP 2 VIEWS INDICATION / CLINICAL INFORMATION: left back/hip pain COMPARISON: None available. FINDINGS: BONES / JOINT(S): No acute fracture or subluxation. 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 SOFT TISSUES: No significant abnormality. ADDITIONAL FINDINGS: None. Signer Name: Amadou Dimas MD Signed: 03/08/2021 7:04 PM Workstation Name: [id number] Transcribed By: ES Dictated By: Amadou Dimas MD Electronically Authenticated By: Amadou Dimas MD Signed Date/Time: 03/08/211903 DD/ 02 TD/TT: - Medical Decision Making This is a 50-year-old male that presents with low back strain. Patient is stable was examined by me. There is no spinal tenderness. There is no cauda equina syndrome during examination. No bladder or bowel instability. Patient is notified of the imaging results with no questions noted by the patient. Patient received Toradol 60 mg IM and prednisone in the ED which stated that his symptoms has resolved and subsided. Patient is discharged with muscle relaxant and naproxen. Patient was instructed not to operate any machinery while taking muscle relaxant as they cause her drowsiness. Patient was referred to Follow- up with a primary care doctor in 3-5 days or if symptoms worsen and continue return to emergency room as soon as possible. At time of discharge, the patient does not seem toxic or ill in appearance. No acute signs of distress noted. Patient agrees to discharge treatment plan of care. No further questions noted by the patient. This chart is dictated with using [employer] Dictation Program Critical care attestation.: If time is entered above; I have spent that time in minutes in the direct care of this critically ill patient, excluding procedure time. ED Disposition Clinical Impression: Low back strain Qualifiers: Encounter type: initial encounter Qualified Code(s): S39.012A - Strain of muscle, fascia and tendon of lower back, initial encounter Disposition: HOME / SELF CARE / HOMELESS Is pt being admited?: No Does the pt Need Aspirin: No Condition: Stable Instructions: Lumbar Strain, Cyclobenzaprine tablets Additional Instructions: Follow-up with your primary care doctor in 3-5 days or if symptoms worsen such as bladder or bowel stability, chest pain, short of breath, numbness or tingling sensation in extremities, headache, dizziness, visual changes, nausea vomiting, or abdominal pain, return back to emergency room as was possible. Take naproxen and Flexeril as prescribed. Do not operate heavy machinery while taking Flexeril due to sedation Prescriptions: Cyclobenzaprine [Flexeril] 10 mg PO QHS PRN #10 tablet PRN Reason: Muscle Spasm Naproxen 500 mg PO Q12H PRN #12 tablet PRN Reason: Pain , Severe (7-10) Referrals: PRIMARY MD JIMENA [Primary Care Provider] - 3-5 Days EDWAR GAYTAN MD [Staff Physician] - 3-5 Days Forms: Work/School Release Form(ED) Time of Disposition: 19:56
== END 2021-03-08 20:00 | disposition home or self-care (01) ==
LOC: ED 17:01
DX: S39.012A Strain of muscle, fascia and tendon of lower back, initial encounter (principal); G89.29 Other chronic pain; J45.909 Unspecified asthma, uncomplicated; F17.200 Nicotine dependence, unspecified, uncomplicated; Z79.899 Other long term (current) drug therapy; X58.XXXA Exposure to other specified factors, initial encounter; Y93.89 Activity, other specified; Y92.89 Other specified places as the place of occurrence of the external cause; Y99.8 Other external cause status
CPT/HCPCS: 72100; 99283

== ENCOUNTER 2021-06-29 08:34 | Emergency (ER) | payer SELFPAY ==
[2021-06-29 09:25] LABS: Basophils % (Auto) 0.4 % (0.0-1.8); Eosinophils # (Auto) 0.3 K/mm3 (0.0-0.4); Eosinophils % (Auto) 8.1 % (0.0-4.3); Hematocrit 39.3 % (35.5-45.6); Hemoglobin 13.1 gm/dl (11.8-15.2); Lymphocytes # (Auto) 1.2 K/mm3 (1.2-5.4); Lymphocytes % (Auto) 29.8 % (13.4-35.0); Mean Corpuscular HGB Conc 33 % (32-34); Mean Corpuscular Volume 100 fl (84-94); Monocytes # (Auto) 0.4 K/mm3 (0.0-0.8); Monocytes % (Auto) 8.9 % (0.0-7.3); Platelet Count 134 K/mm3 (140-440); Red Blood Count 3.95 M/mm3 (3.65-5.03); Red Cell Distribution Width 12.4 % (13.2-15.2)
[2021-06-29 09:35] LABS: INR 0.89 (0.87-1.13)
[2021-06-29 09:36] LABS: Partial Thromboplastin Time 29.9 Sec. (24.2-36.6)
[2021-06-29 09:46] LABS: Alanine Aminotransferase 13 units/L (7-56); Albumin 4.2 g/dL (3.9-5); BUN/Creatinine Ratio 11; Blood Urea Nitrogen 12 mg/dL (9-20); Calcium 9.9 mg/dL (8.4-10.2); Hemolysis Index 9
--- NOTE | 2021-06-29 12:09 | Emergency Department Report ---
ED GI Bleed HPI - General Chief complaint: GI Bleed Stated complaint: BLOOD IN STOOL Time Seen by Provider: 06/29/21 08:57 Source: patient Mode of arrival: Ambulatory Limitations: No Limitations - History of Present Illness Initial comments: This is a 51-year-old male nontoxic, well nourished in appearance, no acute signs of distress presents to the ED with c/o of GI bleed complaints x 2 days. Patient stated has some red blood noted in the stool 2 days ago but yesterday had no blood in stool. Patient otherwise denies any other complaints or sympt oms. Denies any abdominal pain, nausea or vomiting. Patient denies chest pain, short of breath, fever, hemoptysis, blood in stool, chills, headache, stiff neck, numbness or tingling. Patient denies any diarrhea or constipation. Denies any blood in stool. Patient denies any recent travels. Patient denies any drug allergies or significant past medical history. Patient denies any alcohol consumption or drug consumption -: days(s) (3) Severity scale (0 -10): 0 Consistency: now resolved Improves with: none Worsens with: none Associated Symptoms: denies other symptoms. denies: abdominal pain, nausea, vomiting, epistaxis, fever/chills, headaches, loss of appetite, malaise, easy bruising, rash, other bleeding, shortness of breath, syncope, weakness - Related Data Home Medications Medication Instructions Recorded Confirmed Last Taken Albuterol Mdi (or & Nicu Only) 2 puff IH Q4HR 11/21/15 11/21/15 11/21/15 [Proair] Previous Rx's Medication Instructions Recorded Last Taken Type traMADoL [Ultram 50 MG tab] 50 mg PO Q6HR PRN #10 tablet 11/22/15 Unknown Rx Ciprofloxacin HCl [Ciprofloxacin 500 mg PO BID 7 Days #14 tab 01/21/20 Unknown Rx TAB] Famotidine [Pepcid] 40 mg PO QHS #30 tablet 01/21/20 Unknown Rx Polyethylene Glycol 3350 [Miralax] 7 gm PO DAILY PRN #1 powder 01/21/20 Unknown Rx Promethazine [Phenergan] 25 mg PO Q8HR PRN #10 tab 01/21/20 Unknown Rx Sucralfate [Carafate] 1 gm PO ACHS 7 Days #21 tablet 01/21/20 Unknown Rx Docusate Sodium [Colace] 100 mg PO BID PRN #30 capsule 08/05/20 Unknown Rx Famotidine [Pepcid] 20 mg PO BID #30 tablet 08/05/20 Unknown Rx HYDROcodone/APAP 5-325 [Menno 1 - 2 each PO Q6HR PRN #10 tablet 08/05/20 Unknown Rx 5/325] Lactulose [Cephulac] 20 gm PO QDAY #90 ml 08/05/20 Unknown Rx Cyclobenzaprine [Flexeril] 10 mg PO QHS PRN #10 tablet 03/08/21 Unknown Rx Naproxen 500 mg PO Q12H PRN #12 tablet 03/08/21 Unknown Rx Ciprofloxacin HCl 500 mg PO Q12H #14 tab 06/29/21 Unknown Rx Allergies Allergy/AdvReac Type Severity Reaction Status Date / Time No Known Allergies Allergy Verified 03/08/21 17:22 ED Review of Systems ROS: Stated complaint: BLOOD IN STOOL Other details as noted in HPI Comment: All other systems reviewed and negative Constitutional: denies: chills, fever Eyes: denies: eye pain, eye discharge, vision change ENT: denies: ear pain, throat pain Respiratory: denies: cough, shortness of breath, wheezing Cardiovascular: denies: chest pain, palpitations Endocrine: no symptoms reported Gastrointestinal: hematochezia. denies: abdominal pain, nausea, vomiting, diarrhea, constipation, hematemesis, melena Genitourinary: denies: urgency, dysuria Musculoskeletal: denies: back pain, joint swelling, arthralgia Skin: denies: rash, lesions Neurological: denies: headache, weakness, paresthesias Psychiatric: denies: anxiety, depression Hematological/Lymphatic: denies: easy bleeding, easy bruising ED Past Medical Hx - Past Medical History Hx Asthma: Yes - Social History Smoking Status: Current Some Day Smoker Substance Use Type: None (Denies illicit drug use), Alcohol - Medications Home Medications: Home Medications Medication Instructions Recorded Confirmed Last Taken Type Albuterol Mdi (or & Nicu Only) 2 puff IH Q4HR 11/21/15 11/21/15 11/21/15 History [Proair] traMADoL [Ultram 50 MG tab] 50 mg PO Q6HR PRN #10 tablet 06/12/16 Unknown Rx Ciprofloxacin HCl [Ciprofloxacin 500 mg PO BID 7 Days #14 tab 01/21/20 Unknown Rx TAB] Famotidine [Pepcid] 40 mg PO QHS #30 tablet 01/21/20 Unknown Rx Polyethylene Glycol 3350 [Miralax] 7 gm PO DAILY PRN #1 powder 01/21/20 Unknown Rx Promethazine [Phenergan] 25 mg PO Q8HR PRN #10 tab 01/21/20 Unknown Rx Sucralfate [Carafate] 1 gm PO ACHS 7 Days #21 tablet 01/21/20 Unknown Rx Docusate Sodium [Colace] 100 mg PO BID PRN #30 capsule 08/05/20 Unknown Rx Famotidine [Pepcid] 20 mg PO BID #30 tablet 08/05/20 Unknown Rx HYDROcodone/APAP 5-325 [Menno 1 - 2 each PO Q6HR PRN #10 tablet 08/05/20 Unknown Rx 5/325] Lactulose [Cephulac] 20 gm PO QDAY #90 ml 08/05/20 Unknown Rx Cyclobenzaprine [Flexeril] 10 mg PO QHS PRN #10 tablet 03/08/21 Unknown Rx Naproxen 500 mg PO Q12H PRN #12 tablet 03/08/21 Unknown Rx Ciprofloxacin HCl 500 mg PO Q12H #14 tab 06/29/21 Unknown Rx ED Physical Exam - General Limitations: No Limitations General appearance: alert, in no apparent distress - Head Head exam: Present: atraumatic, normocephalic - Eye Eye exam: Present: normal appearance - Neck Neck exam: Present: normal inspection, full ROM. Absent: lymphadenopathy - Respiratory Respiratory exam: Present: normal lung sounds bilaterally. Absent: respiratory distress, wheezes, rales, rhonchi, stridor, chest wall tenderness, accessory muscle use, decreased breath sounds, prolonged expiratory - Cardiovascular Cardiovascular Exam: Present: regular rate, normal rhythm, normal heart sounds. Absent: bradycardia, tachycardia, irregular rhythm, systolic murmur, diastolic murmur, rubs, gallop - GI/Abdominal GI/Abdominal exam: Present: soft, normal bowel sounds. Absent: distended, tenderness, guarding, rebound, rigid, diminished bowel sounds - Rectal Rectal exam: Present: normal inspection, normal rectal tone, heme (-) stool, normal prostate. Absent: decreased rectal tone, heme (+) stool, black stool, bloody stool, fecal impaction, hemorrhoids, mass, tenderness, prostate tenderness, prostate enlargement - Extremities Exam Extremities exam: Present: normal inspection, full ROM - Back Exam Back exam: Present: normal inspection, full ROM. Absent: tenderness, CVA tenderness (R), CVA tenderness (L), muscle spasm, paraspinal tenderness, vertebral tenderness, rash noted - Neurological Exam Neurological exam: Present: alert, oriented X3, normal gait - Psychiatric Psychiatric exam: Present: normal affect, normal mood - Skin Skin exam: Present: warm, dry, intact, normal color. Absent: rash ED Course Vital Signs 06/29/21 08:39 Temperature 97.5 F L Pulse Rate 78 Respiratory 16 Rate Blood Pressure 119/83 [Right] O2 Sat by Pulse 96 Oximetry - Reevaluation(s) Reevaluation #1: 06/29/21 12:09 Patient is speaking in full sentences with no signs of distress noted. ED Medical Decision Making - Lab Data Result diagrams: 06/29/21 09:00 06/29/21 09:00 Lab Results 06/29/21 06/29/21 06/29/21 Range/Units 09:00 09:00 09:00 WBC 4.2 L (4.5-11.0) K/mm3 RBC 3.95 (3.65-5.03) M/mm3 Hgb 13.1 (11.8-15.2) gm/dl Hct 39.3 (35.5-45.6) % MCV 100 H (84-94) fl MCH 33 H (28-32) pg MCHC 33 (32-34) % RDW 12.4 L (13.2-15.2) % Plt Count 134 L (140-440) K/mm3 Lymph % (Auto) 29.8 (13.4-35.0) % [place] % (Auto) 8.9 H (0.0-7.3) % Eos % (Auto) 8.1 H (0.0-4.3) % Baso % (Auto) 0.4 (0.0-1.8) % Lymph # (Auto) 1.2 (1.2-5.4) K/mm3 [place] # (Auto) 0.4 (0.0-0.8) K/mm3 Eos # (Auto) 0.3 (0.0-0.4) K/mm3 Baso # (Auto) 0.0 (0.0-0.1) K/mm3 Seg Neutrophils % 52.8 (40.0-70.0) % Seg Neutrophils # 2.2 (1.8-7.7) K/mm3 PT 13.1 (12.2-14.9) Sec. INR 0.89 (0.87-1.13) APTT 29.9 (24.2-36.6) Sec. Sodium 141 (137-145) mmol/L Potassium 3.7 (3.6-5.0) mmol/L Chloride 105.7 (98-107) mmol/L Carbon Dioxide 24 (22-30) mmol/L Anion Gap 15 mmol/L BUN 12 (9-20) mg/dL Creatinine 1.1 (0.8-1.3) mg/dL Estimated GFR > 60 ml/min BUN/Creatinine Ratio 11 % Glucose 87 (75-100) mg/dL Calcium 9.9 (8.4-10.2) mg/dL Total Bilirubin 0.90 (0.1-1.2) mg/dL AST 19 (5-40) units/L ALT 13 (7-56) units/L Alkaline Phosphatase 61 (35-129) units/L Total Protein 7.1 (6.3-8.2) g/dL Albumin 4.2 (3.9-5) g/dL Albumin/Globulin Ratio 1.4 % Urine Color (Yellow) Urine Turbidity (Clear) Urine pH (5.0-7.0) Ur Specific Fife (1.003-1.030) Urine Protein (Negative) mg/dL Urine Glucose (UA) (Negative) mg/dL Urine Ketones (Negative) mg/dL Urine Blood (Negative) Urine Nitrite (Negative) Urine Bilirubin (Negative) Urine Urobilinogen (<2.0) mg/dL Ur Leukocyte Esterase (Negative) Urine WBC (Auto) (0.0-6.0) /HPF Urine RBC (Auto) (0.0-6.0) /HPF U Epithel Cells (Auto) (0-13.0) /HPF Urine Mucus /HPF 06/29/21 Range/Units Unknown WBC (4.5-11.0) K/mm3 RBC (3.65-5.03) M/mm3 Hgb (11.8-15.2) gm/dl Hct (35.5-45.6) % MCV (84-94) fl MCH (28-32) pg MCHC (32-34) % RDW (13.2-15.2) % Plt Count (140-440) K/mm3 Lymph % (Auto) (13.4-35.0) % R[place] % (Auto) (0.0-7.3) % Eos % (Auto) (0.0-4.3) % Baso % (Auto) (0.0-1.8) % Lymph # (Auto) (1.2-5.4) K/mm3 [place] # (Auto) (0.0-0.8) K/mm3 Eos # (Auto) (0.0-0.4) K/mm3 Baso # (Auto) (0.0-0.1) K/mm3 Seg Neutrophils % (40.0-70.0) % Seg Neutrophils # (1.8-7.7) K/mm3 PT (12.2-14.9) Sec. INR (0.87-1.13) APTT (24.2-36.6) Sec. Sodium (137-145) mmol/L Potassium (3.6-5.0) mmol/L Chloride (98-107) mmol/L Carbon Dioxide (22-30) mmol/L Anion Gap mmol/L BUN (9-20) mg/dL Creatinine (0.8-1.3) mg/dL Estimated GFR ml/min BUN/Creatinine Ratio % Glucose (75-100) mg/dL Calcium (8.4-10.2) mg/dL Total Bilirubin (0.1-1.2) mg/dL AST (5-40) units/L ALT (7-56) units/L Alkaline Phosphatase (35-129) units/L Total Protein (6.3-8.2) g/dL Albumin (3.9-5) g/dL Albumin/Globulin Ratio % Urine Color Yellow (Yellow) Urine Turbidity Slightly-cloudy (Clear) Urine pH 6.0 (5.0-7.0) Ur Specific Fife 1.015 (1.003-1.030) Urine Protein <15 mg/dl (Negative) mg/dL Urine Glucose (UA) Neg (Negative) mg/dL Urine Ketones Neg (Negative) mg/dL Urine Blood Neg (Negative) Urine Nitrite Neg (Negative) Urine Bilirubin Neg (Negative) Urine Urobilinogen < 2.0 (<2.0) mg/dL Ur Leukocyte Esterase Mod (Negative) Urine WBC (Auto) 60.0 H (0.0-6.0) /HPF Urine RBC (Auto) 2.0 (0.0-6.0) /HPF U Epithel Cells (Auto) 1.0 (0-13.0) /HPF Urine Mucus Few /HPF - Medical Decision Making 51-year-old male that presents with blood in stool and UTI. Patient is stable and was examined by me. Physical exam is otherwise unremarkable. Exam does not show any pyelonephritis. Labs has been obtained. Patient is notified of the results with no questions noted by the patient. Patient be treated with ciprofloxacin at discharge. Patient was instructed to follow-up with a primary care and core paster doctor in 3-5 days or if symptoms worsen and continue return to emergency room as soon as possible. At time of discharge, the patient does not seem toxic or ill in appearance. No acute signs of distress noted. Patient agrees to discharge treatment plan of care. No further questions noted by the patient. Critical care attestation.: If time is entered above; I have spent that time in minutes in the direct care of this critically ill patient, excluding procedure time. ED Disposition Clinical Impression: Blood in stool UTI (urinary tract infection) Qualifiers: Urinary tract infection type: site unspecified Hematuria presence: without hematuria Qualified Code(s): N39.0 - Urinary tract infection, site not specified Disposition: 01 HOME / SELF CARE / HOMELESS Is pt being admited?: No Does the pt Need Aspirin: No Condition: Stable Additional Instructions: Follow-up with a primary care and core paster doctor in 3-5 days or if symptoms worsen and continue return to emergency room as soon as possible. Prescriptions: Ciprofloxacin HCl 500 mg PO Q12H #14 tab Referrals: BOBBY HESS MD [Primary Care Provider] - 3-5 Days EDWAR GAYTAN MD [Staff Physician] - 3-5 Days Time of Disposition: 12:59
[2021-06-29 12:48] LABS: Bilirubin,Urine NEG (Negative); Blood,Urine NEG (Negative); Color,Urine Yellow (Yellow); Mucus,Urine FEW /HPF; Protein,Urine <15 mg/dL mg/dL (Negative); Urobilinogen,Urine < 2.0 mg/dL (<2.0)
[2021-06-29 13:50] VITALS: BP 120/83
== END 2021-06-29 13:51 | disposition home or self-care (01) ==
LOC: ED 08:34
DX: K92.1 Melena (principal); N39.0 Urinary tract infection, site not specified; J45.909 Unspecified asthma, uncomplicated
CPT/HCPCS: 36415; 80053; 81001; 82271; 85025; 85610; 85730; 87086; 99283